=== PATIENT | female | born 1950 | race African-American/Black ===

== ENCOUNTER 2018-12-27 07:00 | Inpatient (IN) | payer MEDICARE, OTHER ==
[~2018-12-27] VITALS: Ht 180.3 cm; Wt 73.5 kg
[2018-12-27] MEDS ORDERED: SODIUM CHLORIDE 0.9% 1,000 ML IV ONE (08:06)
[2018-12-27] MEDS ORDERED: KETOROLAC 30MG/ML VIAL IV STA (08:06)
[2018-12-27] MEDS ORDERED: ONDANSETRON HCL 4MG/2ML INJ IV STA (08:06)
[2018-12-27] MEDS ORDERED: KETOROLAC 30MG/ML VIAL IV ONE (08:45)
[2018-12-27 08:51] LABS: CLARITY URINE CLOUDY (CLEAR); COLOR URINE YELLOW (YELLOW); KETONES URINE TRACE (NEGATIVE); LEUKOCYTE ESTERASE URINE 1+ (NEGATIVE); NITRITE URINE NEGATIVE (NEGATIVE); OCCULT BLOOD URINE 2+ (NEGATIVE); PROTEIN URINE NEGATIVE (NEGATIVE); SPECIFIC GRAVITY URINE 1.016 (1.005-1.030)
[2018-12-27 08:57] LABS: BASOPHILS % 0.7 % (0.0-2.0); EOSINOPHILS % 0.2 % (0.0-5.0); HEMATOCRIT. 34.3 % (36.0-48.0); HEMOGLOBIN. 11.7 g/dL (12.0-16.0); LYMPHOCYTES % 10.3 % (20.0-50.0); MEAN CORPUSCULAR HEMOGLOBIN 30.4 pg (28.0-32.0); MEAN CORPUSCULAR VOLUME 89.3 fL (81.0-99.0); MONOCYTES % 10.4 % (2.0-8.0); NEUTROPHILS % 78.4 % (40.0-76.0); PLATELET 359 x1000/uL (130-400); RED BLOOD CELL COUNT 3.84 mill/uL (4.2-5.4); RED CELL DISTRIBUTION WIDTH 14.7 % (11.6-14.6)
[2018-12-27 09:04] LABS: CHLORIDE 101 mEq/L (98-107)
[2018-12-27 09:05] LABS: INR 1.1; PROTHROMBIN TIME 10.9 sec (9.6-11.0)
[2018-12-27 09:09] LABS: ETHANOL BLOOD < 10 mg/dL
[2018-12-27 09:13] LABS: *AMPHETAMINES SCREEN URINE NEGATIVE (NEGATIVE); *BARBITURATES SCREEN URINE NEGATIVE (NEGATIVE); *BENZODIAZEPINES SCREEN URINE NEGATIVE (NEGATIVE); *COCAINE SCREEN URINE NEGATIVE (NEGATIVE); METHADONE URINE SCREEN NEGATIVE (NEGATIVE); OPIATES URINE SCREEN NEGATIVE (NEGATIVE)
[2018-12-27 09:14] LABS: CANNABINOID URINE SCREEN NEGATIVE (NEGATIVE); PHENCYCLIDINE URINE SCREEN NEGATIVE (NEGATIVE)
[2018-12-27] MEDS ORDERED: SODIUM CHLORIDE 0.9% 1000ML BAG (SEPSIS BOLUS) IV ONE (10:00)
[2018-12-27] MEDS ORDERED: PIPERACILLIN/TAZ 3.375G PREMIX 50 ML IV ONE (10:00)
[2018-12-27] MEDS ORDERED: LEVOFLOXACIN 500MG PREMIX 100 ML IV ONE (11:00)
[2018-12-27] MEDS ORDERED: VANCOMYCIN 1 G PREMIX 200 ML IV SCH (11:00)
[2018-12-27] MEDS ORDERED: ONDANSETRON HCL 4MG/2ML INJ IV PRN (13:15)
[2018-12-27] MEDS ORDERED: MAGNESIUM/ALUMINUM HYDROXIDE/SIMETHICONE 30ML UDC PO PRN (13:15)
[2018-12-27] MEDS ORDERED: ACETAMINOPHEN 325MG TABLET PO PRN (13:15)
[2018-12-27] MEDS ORDERED: MORPHINE SULFATE 4 MG/ML CPJ (NOT FOR IM USE) IV PRN (13:15)
[2018-12-27] MEDS ORDERED: CLONIDINE 0.1MG TABLET PO PRN (13:15)
[2018-12-27] MEDS ORDERED: DIPHENHYDRAMINE 50MG/ML VIAL IV PRN (13:15)
[2018-12-27] MEDS ORDERED: HYDROCODONE/ACETAMINOPHEN 5/325MG TABLET PO PRN (13:15)
[2018-12-27] MEDS ORDERED: DEXTROSE 50% WATER 50ML SYRINGE IV PRN ×2 (13:15)
[2018-12-27] MEDS ORDERED: DOCUSATE SODIUM 100MG CAPSULE PO PRN (13:15)
[2018-12-27 16:10] VITALS: BP 124/72
[2018-12-27 16:17] VITALS: BP 124/72
[2018-12-27] MEDS ORDERED: CEPHALEXIN 250MG CAPSULE PO NR (17:00)
[2018-12-27] MEDS ORDERED: ASPI-1158 MT (17:37)
[2018-12-27] MEDS ORDERED: GLIP5TAB12 MT (17:37)
[2018-12-27] MEDS ORDERED: METF-414 MT (17:37)
[2018-12-27] MEDS: INSULIN LISPRO 100 UNITS/ML SUBCUT SCH ×2 (17:46→21:48)
[2018-12-27] MEDS: BLOOD SUGAR DIAGNOSTIC STRIP TEST SCH ×2 (17:46→21:48)
[2018-12-27 18:00] VITALS: BP 126/64
[2018-12-27 20:00] VITALS: BP 112/54
[2018-12-28] VITALS: BP 115/66
[2018-12-28 04:00] VITALS: BP 147/77
[2018-12-28 07:01] LABS: BASOPHILS % 0.8 % (0.0-2.0); EOSINOPHILS % 0.3 % (0.0-5.0); HEMATOCRIT. 31.9 % (36.0-48.0); HEMOGLOBIN. 10.9 g/dL (12.0-16.0); LYMPHOCYTES % 12.7 % (20.0-50.0); MEAN CORPUSCULAR HEMOGLOBIN 30.3 pg (28.0-32.0); MEAN CORPUSCULAR VOLUME 88.4 fL (81.0-99.0); MEAN PLATELET VOLUME 9.6 fl (7.4-10.4); MONOCYTES % 10.9 % (2.0-8.0); NEUTROPHILS % 75.3 % (40.0-76.0); PLATELET 339 x1000/uL (130-400); RED BLOOD CELL COUNT 3.61 mill/uL (4.2-5.4)
[2018-12-28] MEDS: BLOOD SUGAR DIAGNOSTIC STRIP TEST SCH ×2 (07:20→12:13)
[2018-12-28 07:46] LABS: CHLORIDE 108 mEq/L (98-107)
[2018-12-28 07:54] LABS: PHOSPHORUS 2.5 mg/dL (2.5-4.9)
[2018-12-28 07:56] LABS: LDL CHOLESTEROL 47 mg/dL (5-100)
[2018-12-28 07:58] LABS: HDL CHOLESTEROL 19 mg/dL (40-59)
[2018-12-28 08:00] VITALS: BP 134/75
[2018-12-28] MEDS: INSULIN LISPRO 100 UNITS/ML SUBCUT SCH ×2 (08:29→14:09)
[2018-12-28 12:00] VITALS: BP 119/71
[2018-12-28] MEDS ORDERED: CEPHALEXIN 250MG CAPSULE PO SCH (12:00)
[2018-12-28] MEDS ORDERED: CEFTAZIDIME PENTAHYDRATE 1 G in DEXTROSE 5% WATER 50 ML IV SCH (14:00)
== END 2018-12-28 15:00 | disposition left against medical advice (07) | DRG 690 ==
LOC: EDBD 07:24 → ER 07:24 → 6EST 11:44 → EDBEDREQ 11:51 → EDBEDREQTM 11:51 → EDBEDREQSVC 11:51 → ENRESERV 15:19
PROVIDERS: ADMIT Family Medicine Adult Medicine; ATTEND Family Medicine Adult Medicine
DX: N15.1 Renal and perinephric abscess (principal); E44.1 Mild protein-calorie malnutrition; N39.0 Urinary tract infection, site not specified; D25.9 Leiomyoma of uterus, unspecified; E78.5 Hyperlipidemia, unspecified; F10.10 Alcohol abuse, uncomplicated; K76.0 Fatty (change of) liver, not elsewhere classified; L80 Vitiligo; E11.9 Type 2 diabetes mellitus without complications; N28.1 Cyst of kidney, acquired; Z88.0 Allergy status to penicillin; E11.65 Type 2 diabetes mellitus with hyperglycemia
CPT/HCPCS: 36415; 71045; 74176; 76700; 80048; 80061; 80305; 80320; 82962; 83036; 83605; 83735; 84100; 84443; 84484; 87077; 87186; 93005; 93970; J0713; J1815; J1885; J1956; J2405; J3370; J7030; J7060; G0480